=== PATIENT | male | born 1995 ===

== ENCOUNTER → 2024-05-30 16:36 | Outpatient (REF) | payer OTHER, SELFPAY ==
[2024-05-30 17:18] LABS: % Eosinophils 2.2 % (0-6); % Immature Granulocytes 0.2 % (0-0.5); % Lymphocytes 30.5 % (20.5-51.1); % Monocytes 8.2 % (1.7-9.3); % Neutrophils 57.9 % (42.2-75.2); Absolute Basophils 0.1 10^3/uL (0-0.2); Absolute Eosinophils 0.1 10^3/uL (0-0.7); Absolute Lymphocytes 1.5 10^3/uL (1.2-3.4); Absolute Monocytes 0.4 10^3/uL (0.1-0.6); Absolute Neutrophils 2.9 10^3/uL (1.4-6.5); Hematocrit 39.6 % (39.0-52.0); Hemoglobin 13.9 g/dL (13.0-18.0); Mean Corp Hgb Conc. 35.1 g/dL (33.0-37.0); Mean Corpuscular Hgb 31.3 pg (27.0-31.0); Mean Corpuscular Volume 89.2 fL (80.0-94.0); Nucleated Red Blood Cells % 0 % (-); Platelet Count 215 10^3/uL (130-400); Red Blood Cell Count 4.44 10^6/uL (4.70-6.10); Red Cell Dist. Width 11.8 % (11.5-14.5)
[2024-05-30 17:22] LABS: Blood Urea Nitrogen 13 mg/dl (9-20); Calcium 9.3 mg/dl (8.4-10.2); Carbon Dioxide 26 mmol/L (22-30); Chloride 103 mmol/L (98-107); Glucose 92 mg/dl (70-99); Sodium 140 mmol/L (135-145); eGFR > 60.00
[2024-05-30 17:37] LABS: Vitamin D, 25-OH*** 35.7 ng/mL (30-80)
[2024-05-30 17:56] LABS: Ferritin 49.6 ng/ml (17.9-464.0)
[2024-05-30 18:27] LABS: Folate 6.6 ng/ml (2.76-20); Vitamin B12 258 pg/ml (239-931)
== END ==
LOC: REG 16:36
PROVIDERS: ATTENDING PHYSICIAN Obstetrics & Gynecology; FAMILY PHYSICIAN Family Medicine
DX: R53.83 Other fatigue (principal)
CPT/HCPCS: 36415; 80048; 82306; 82607; 82728; 82746; 85025